=== PATIENT | male | born 1950 | race Caucasian/White ===

== ENCOUNTER → 2017-01-24 | Outpatient (CLI) | payer OTHER ==
[~2017-01-24] MED LIST: ALBUAER19 INH; ASC400 PO; ASPEC81 PO; CETICHW4 PO; CLB200 PO; CRS10 PO; GLC500 PO; GLIM1TAB2 PO; HYDR-4313 PO; LANS15CA6 PO; LANS30CA12 PO; ORPH100T PO; OXYC-609 PO; SERT-234 PO; XNX25 PO
[2017-01-24 13:15] LABS: BASO % 0.5 %; BASO ABS # 0.04 K/uL (0-0.2); COMPLETE YES; EOS % 2.7 %; IG% 0.4 %; LYMPH % 20.6 %; LYMPH ABS # 1.73 K/uL (1.2-3.4); MEAN CELL VOLUME 87.2 fL (80-100); MEAN CORPUSCULAR HEMOGLOBIN 30.4 pg (25-34); MEAN CORPUSCULAR HGB CONC 34.9 g/dl (32-36); MEAN PLATELET VOLUME 10.4 fL (7.4-10.4); MONO % 8.5 %; NEUT % 67.3 %; PLATELET COUNT 160 K/uL (130-400); RED BLOOD COUNT 5.16 M/uL (4.7-6.1); WHITE BLOOD COUNT 8.39 K/uL (4.8-10.8)
[2017-01-24 13:33] LABS: ALT/SGPT 54 U/L (12-78); BLOOD UREA NITROGEN 18 mg/dl (7-18); BUN/CREATININE RATIO 17.7 (10-20); CARBON DIOXIDE 25 mmol/L (21-32); CHLORIDE 105 mmol/L (98-107); CREATININE 0.99 mg/dl (0.60-1.40); GLUCOSE 155 mg/dl (70-99); POTASSIUM 4.2 mmol/L (3.5-5.1); SODIUM 140 mmol/L (136-145)
[2017-01-24 13:36] LABS: ALB/GLOB RATIO 1.3 (0.9-2); ALKALINE PHOSPHATASE 93 U/L (45-117); AST/SGOT 23 U/L (15-37); CHOLESTEROL 126 mg/dl (0-200); TRIGLYCERIDES 81 mg/dl (0-150); VERY LOW DENSITY LIPOPROT CALC 16 mg/dl
[2017-01-24 13:38] LABS: CALCIUM 9.5 mg/dl (8.5-10.1)
[2017-01-24 13:39] LABS: CHOLESTEROL/HDL RATIO 2.3; ESTIMATED AVERAGE GLUCOSE 169 mg/dl; HA1C FLAG Normal (Normal); HDL CHOLESTEROL 54 mg/dl; LDL CHOLESTEROL CALCULATED 56 mg/dl
[2017-01-24 13:48] LABS: RATIO 16.2 mcg/mg (0-30.0)
--- NOTE | 2017-01-29 09:32 | CODING QUERY MEDICAL NECESSITY ---
SUPPORTING DIAGNOSIS NEEDED A supporting diagnosis is required for the test/procedure performed on this patient in order for us to be reimbursed by the patient's insurance. Please provide a supporting diagnosis for the following test/procedure listed below next to the test name along with your signature. *If there is no additional diagnosis for this patient that would support the following test/procedure please document that below next to the test/procedure. Test(s)/Procedure(s) that require a supporting diagnosis: DOS 01/24 * PSA DIAGNOSIS: Provider Signature: Date: Thank you Mikayla Vargas Health Information Management Once completed, please kindly fax back to [phone] For questions please call [phone]
== END | disposition home or self-care (01) ==
LOC: C.LABMFLN 08:18
PROVIDERS: ATTEND Family Medicine
DX: E11.9 Type 2 diabetes mellitus without complications (principal); E78.00 Pure hypercholesterolemia, unspecified; K50.90 Crohn's disease, unspecified, without complications; Z12.5 Encounter for screening for malignant neoplasm of prostate

== ENCOUNTER → 2017-07-24 | Outpatient (CLI) | payer OTHER ==
[~2017-07-24] VITALS: Ht 167.6 cm; Wt 68.3 kg
[2017-07-24 16:13] VITALS: BP 121/78; PULSE 79; Ht 167.6 cm; Wt 68.3 kg
== END | disposition home or self-care (01) ==
LOC: C.NEUR 15:25
PROVIDERS: ATTEND Internal Medicine Pulmonary Disease
DX: G47.33 Obstructive sleep apnea (adult) (pediatric) (principal)

== ENCOUNTER → 2017-11-05 | Outpatient (CLI) | payer OTHER ==
[~2017-11-05] MED LIST changes: +OXYC-57 PO
[2017-11-05 13:19] LABS: HEMOGLOBIN A1C 6.9 % (4.5-5.6)
[2017-11-05 15:25] LABS: ALT/SGPT 58 U/L (12-78); AST/SGOT 36 U/L (15-37); BLOOD UREA NITROGEN 22 mg/dl (7-18); CARBON DIOXIDE 27 mmol/L (21-32); CREATININE 1.01 mg/dl (0.60-1.40); GLUCOSE 121 mg/dl (70-99); POTASSIUM 4.2 mmol/L (3.5-5.1); SODIUM 138 mmol/L (136-145)
[2017-11-05 15:28] LABS: ALKALINE PHOSPHATASE 108 U/L (45-117); CHOLESTEROL 95 mg/dl (0-200); LDL CHOLESTEROL CALCULATED 38 mg/dl; TOTAL PROTEIN 7.7 gm/dl (6.4-8.2)
== END | disposition home or self-care (01) ==
LOC: C.LABMFLN 10:12
PROVIDERS: ATTEND Family Medicine
DX: E11.9 Type 2 diabetes mellitus without complications (principal); E78.00 Pure hypercholesterolemia, unspecified

== ENCOUNTER → 2018-03-13 | Outpatient (CLI) | payer OTHER ==
[~2018-03-13] MED LIST changes: -OXYC-57 PO
[2018-03-13 12:45] LABS: HEMOGLOBIN A1C 7.4 % (4.5-5.6)
[2018-03-13 13:08] LABS: ALT/SGPT 42 U/L (12-78); AST/SGOT 24 U/L (15-37); BLOOD UREA NITROGEN 21 mg/dl (7-18); CALCIUM 8.4 mg/dl (8.5-10.1); CARBON DIOXIDE 29 mmol/L (21-32); CHOLESTEROL 104 mg/dl (0-200); CREATININE 0.93 mg/dl (0.60-1.40); GLUCOSE 121 mg/dl (70-99); POTASSIUM 3.9 mmol/L (3.5-5.1); SODIUM 141 mmol/L (136-145)
[2018-03-13 13:13] LABS: ALKALINE PHOSPHATASE 87 U/L (45-117); LDL CHOLESTEROL CALCULATED 40 mg/dl; TOTAL PROTEIN 7.2 gm/dl (6.4-8.2)
== END | disposition home or self-care (01) ==
LOC: C.LABMFLN 09:13
PROVIDERS: ATTEND Family Medicine
DX: E11.9 Type 2 diabetes mellitus without complications (principal); E78.00 Pure hypercholesterolemia, unspecified

== ENCOUNTER 2018-06-02 05:58 | Emergency (ER) | payer OTHER ==
[~2018-06-02] VITALS: Ht 167.6 cm; Wt 68.4 kg
[2018-06-02 06:03] VITALS: TEMP 36.7; Ht 167.6 cm; Wt 68.4 kg
[2018-06-02 06:20] VITALS: O2SAT 98
--- NOTE | 2018-06-02 06:31 | DIAGNOSTIC IMAGING REPORT ---
CHEST ONE VIEW PORTABLE CLINICAL HISTORY: Chest pain radiating to the epigastrium COMPARISON STUDY: 11/29/2013 FINDINGS: The cardiac and mediastinal contours are normal. There is no evidence of focal pulmonary consolidation. There is no evidence of failure. No pleural effusions are visualized.[ No free intraperitoneal air is visualized. IMPRESSION: No active disease in the chest. Electronically signed by: Anton Smith M.D. 06/02/2018 6:29 AM Dictated Date/Time: 06/02/2018 6:29 AM
[2018-06-02 06:35] LABS: HEMOGLOBIN 15.6 g/dL (14.0-18.0); MEAN CELL VOLUME 91.6 fL (80-100); MEAN CORPUSCULAR HEMOGLOBIN 31.1 pg (25-34); MEAN CORPUSCULAR HGB CONC 33.9 g/dl (32-36); MEAN PLATELET VOLUME 10.2 fL (7.4-10.4); PLATELET COUNT 105 K/uL (130-400); RED CELL DISTRIBUTION WIDTH CV 13.8 % (11.5-14.5); RED CELL DISTRIBUTION WIDTH SD 45.5 fL (36.4-46.3); WHITE BLOOD COUNT 4.92 K/uL (4.8-10.8)
[2018-06-02] MEDS ORDERED: OXYC-57 PO (06:56)
[2018-06-02 06:57] LABS: ALBUMIN 3.8 gm/dl (3.4-5.0); ALKALINE PHOSPHATASE 98 U/L (45-117); ALT/SGPT 54 U/L (12-78); AST/SGOT 37 U/L (15-37); BLOOD UREA NITROGEN 25 mg/dl (7-18); CALCIUM 8.8 mg/dl (8.5-10.1); CARBON DIOXIDE 25 mmol/L (21-32); CKMB < 1.0 ng/ml (0.5-3.6); CREATININE 1.12 mg/dl (0.60-1.40); GLUCOSE 123 mg/dl (70-99); SODIUM 139 mmol/L (136-145); TOTAL PROTEIN 7.1 gm/dl (6.4-8.2)
--- NOTE | 2018-06-02 06:57 | EMERGENCY ROOM VISIT NOTE ---
History Report prepared by Otilia: Manoj Marcus Under the Supervision of: Dr. Tito Mccloud D.O. First contact with patient: 06:33 Chief Complaint: HIP PAIN Stated Complaint: HIP PAIN,HEART BURN History of Present Illness The patient is a 67 year old male who presents to the Emergency Room with complaints of right hip pain that has been progressively worsening for the past "couple of days." The patient notes that he may have bursitis in his hip, as he has had it in many other joints around his body. He notes that he has had several orthopedic procedures including knee replacements and injections into his wrists. He visited with Dr. Freitas's office 10 days ago to have films taken of his back. He thought his back may be causing the hip pain. The back x-rays were unremarkable. The patient also complains of "heart burn" recently and notes an increased amount of stress to to the loss of a loved one. Source of History: patient Onset: "couple of days" Position: leg (Right hip) Quality: burning (heart burn) Timing: worsening (progressively) Associated Symptoms: + chest pain (heart burn) Review of Systems See HPI for pertinent positives & negatives. A total of 10 systems reviewed and were otherwise negative. Past Medical & Surgical Medical Problems: (1) Diabetes Diabetes Hx of knee replacements, Bursitis. Family History Diabetes mellitus Social History Smoking Status: Never Smoker Drug Use: none Occupation Status: employed (self-employed) Current/Historical Medications Scheduled Alprazolam (Xanax *), 0.25 MG PO BID PRN Aspirin Enteric Coated (Ecotrin Or Generic *), 81 MG PO DAILY Celecoxib (Celebrex *), 200 MG PO DAILY Cetirizine (Zyrtec), 5 MG PO DAILY Glimepiride (Glimepiride), 1 TAB PO QPM Lansoprazole (Prevacid), 30 MG PO QAM Lansoprazole (Prevacid), 15 MG PO QPM Mesalamine (Asacol *), 800 MG PO BID Metformin HCL (Glucophage *), 1,000 MG PO QPM Metformin HCL (Glucophage *), 1,500 MG PO QAM Rosuvastatin Calcium (Crestor *), 15 MG PO QPM Sertraline (Zoloft), 150 MG PO DAILY Scheduled PRN Acetaminophen/Hydrocodone (Hydrocodone/Acetaminophen 5-325 mg), 1 TAB PO Q4H PRN for Pain Albuterol Inhaler (Ventolin Inhaler), 2 PUFFS INH Q4H PRN for Wheezing Orphenadrine Citrate (Norflex), 100 MG PO BID PRN for Mild Pain Oxycodone HCl (Oxycodone HCl), 5-10 MG PO Q4H PRN for Pain Oxycodone/Acetaminophen 5MG/325MG (Percocet 5MG/325MG), 1 TAB PO Q6H PRN for Pain Allergies Coded Allergies: Cephalosporins (Verified Allergy, Intermediate, HIVES, 12/08/13) Penicillins (Verified Allergy, Intermediate, HIVES, 12/08/13) Sitagliptin (Verified Allergy, Intermediate, HIVES, 12/08/13) Physical Exam Vital Signs Date Time Temp Pulse Resp B/P (MAP) Pulse Ox O2 Delivery O2 Flow Rate FiO2 06/02/18 07:26 81 16 142/78 97 06/02/18 06:21 70 06/02/18 06:20 98 Room Air 06/02/18 06:20 98 Room Air 06/02/18 06:03 36.7 70 18 153/81 96 Room Air Physical Exam CONSTITUTIONAL/VITAL SIGNS: Reviewed / noted above. GENERAL: Non-toxic in appearance. INTEGUMENTARY: Warm, dry, and [place]. HEAD: Normocephalic. EYES: without scleral icterus or trauma. ENT/OROPHARYNX: clear and moist. LYMPHADENOPATHY/NECK: Is supple without lymphadenopathy or meningismus. RESPIRATORY: Lungs clear and equal. CARDIOVASCULAR: Regular rate and rhythm. GI/ABDOMEN: Soft and nontender. No organomegaly or pulsatile mass. No rebound or guarding. Normal bowel sounds. EXTREMITIES: Warm and well perfused. BACK: No CVA tenderness. NEUROLOGICAL: Intact without focal deficits. PSYCHIATRIC: normal affect. MUSCULOSKELETAL: Normally developed with good muscle tone. There is tenderness to palpation over the right gluteus muscle. Medical Decision & Procedures ER Provider Diagnostic Interpretation: Radiology results as stated below per my review and radiologist interpretation: CHEST ONE VIEW PORTABLE CLINICAL HISTORY: Chest pain radiating to the epigastrium COMPARISON STUDY: 11/29/2013 FINDINGS: The cardiac and mediastinal contours are normal. There is no evidence of focal pulmonary consolidation. There is no evidence of failure. No pleural effusions are visualized.[ No free intraperitoneal air is visualized. IMPRESSION: No active disease in the chest. Electronically signed by: Anton Smith M.D. 06/02/2018 6:29 AM Dictated Date/Time: 06/02/2018 6:29 AM Laboratory Results 06/02/18 06:20 06/02/18 06:20 Test 06/02/18 06:20 06/02/18 06:25 Red Blood Count 5.02 M/uL (4.7-6.1) Mean Corpuscular Volume 91.6 fL (80-100) Mean Corpuscular Hemoglobin 31.1 pg (25-34) Mean Corpuscular Hemoglobin Concent 33.9 g/dl (32-36) RDW Standard Deviation 45.5 fL (36.4-46.3) RDW Coefficient of Variation 13.8 % (11.5-14.5) Mean Platelet Volume 10.2 fL (7.4-10.4) Prothrombin Time 10.5 SECONDS (9.0-12.0) Prothromb Time International Ratio 1.0 (0.9-1.1) Activated Partial Thromboplast Time 27.0 SECONDS (21.0-31.0) Partial Thromboplastin Ratio 1.0 Anion Gap 8.0 mmol/L (3-11) Est Creatinine Clear Calc Drug Dose 58.5 ml/min Estimated GFR () 78.9 Estimated GFR (Non- 68.1 BUN/Creatinine Ratio 22.3 (10-20) Calcium Level 8.8 mg/dl (8.5-10.1) Total Bilirubin 0.3 mg/dl (0.2-1) Aspartate Amino Transf (AST/SGOT) 37 U/L (15-37) Alanine Aminotransferase (ALT/SGPT) 54 U/L (12-78) Alkaline Phosphatase 98 U/L (45-117) Total Creatine Kinase 34 U/L (39-308) Creatine Kinase MB < 1.0 ng/ml (0.5-3.6) Creatine Kinase MB Ratio (0-3.0) Total Protein 7.1 gm/dl (6.4-8.2) Albumin 3.8 gm/dl (3.4-5.0) Globulin 3.3 gm/dl (2.5-4.0) Albumin/Globulin Ratio 1.2 (0.9-2) Bedside Troponin I < 0.030 ng/ml (0-0.045) Laboratory results as stated above per my review. ECG Per My Interpretation Indication: chest pain (Heart burn) Rate (beats per minute): 66 Rhythm: normal sinus Findings: no acute ischemic change, no ectopy, other (No ESTEPHANIA/STD, no PVCs) ED Course 0637: I did a PDMP search on the patient at this time. He does have frequent Alprazolam prescriptions, no issues identified. 0639: Previous medical records were reviewed. The patient was evaluated in room B3B. A complete history and physical examination was performed. Medical Decision Differential diagnosis: Etiologies such as fracture, dislocation, neurovascular compromise, compartment syndrome, soft tissue injury, as well as others were entertained. This is a 67-year-old male who presents to the ED with a chief complaint of pain in the right buttock area. He also reports some discomfort in his chest that he feels is related to taking too much pain medication. The patient states that he has had the discomfort for about 1 or 2 weeks. He describes a burning sensation in his chest. The patient does report he is taking Prilosec. He states that he saw Dr. Freitas's physician assistant fitness manager 10 days ago and they did not feel it was related to the back. The patient does have follow-up with the GI specialist on Friday, in 3 days as well. The patient states that his pain in his right buttock area has been slowly worsening. He has been doing a lot of work and has been under increased stress recently related to cleaning out his [id number]'s house getting ready for an auction. The patient's has no other complaints. His blood pressure was slightly elevated. On his exam he has tenderness to palpation of the right buttock area. This is specifically where his pain is. He denies any radiation down his legs. He denies any pain with flexion, extension or rotation of the right hip. Distally is neurovascularly intact. His exam is otherwise unremarkable. An EKG shows a sinus rhythm without ischemic changes. His troponin was negative. Blood work is unremarkable. Chest x-ray was clear. The patient was told the results. He is felt to be stable for discharge. Prescription for Percocet was provided for his discomfort. He was advised to follow-up with Dr. Castano, his orthopedist with regards to his pain is right hip/buttock area. He, again, has a GI appointment in 3 days. [place] Drug Monitoring Program Search Results: patient reviewed within database, no issues identified Drug Monitoring Findings: frequent Alprazolam prescriptions. No narcotics. Medication Reconcilliation Current Medication List: was personally reviewed by me Blood Pressure Screening Patient's blood pressure: Elevated blood pressure Blood pressure disposition: Elevated BP felt to be situational Impression Primary Impression: Right buttock pain Additional Impression: Acid reflux Scribe Attestation The scribe's documentation has been prepared under my direction and personally reviewed by me in its entirety. I confirm that the note above accurately reflects all work, treatment, procedures, and medical decision making performed by me. Departure Information Dispostion Home / Self-Care Prescriptions Oxycodone/Acetaminophen 5MG/325MG (PERCOCET 5MG/325MG) Tab 1 TAB PO Q6H Y for Pain, #20 TAB Prov: Tito Mccloud D.O. 06/02/18 Referrals Toney Rene M.D. (PCP) Patient Instructions My [facility] Additional Instructions Follow-up with your GI specialist this Friday as schedule. Follow-up with Dr. Castano for continued discomfort in the right buttock/hip area. Percocet as prescribed. No driving within 6 hours of use. Do not take additional Tylenol while taking Percocet. Your chest x-ray, EKG and blood work today was normal. Problem Qualifiers
[2018-06-02 07:26] VITALS: BP 142/78; PULSE 81; O2SAT 97
== END 2018-06-02 07:20 | disposition home or self-care (01) ==
LOC: C.EDB 05:59
DX: R52 Pain, unspecified (principal); K21.9 Gastro-esophageal reflux disease without esophagitis; E11.9 Type 2 diabetes mellitus without complications; Z96.653 Presence of artificial knee joint, bilateral; Z79.84 Long term (current) use of oral hypoglycemic drugs; Z79.899 Other long term (current) drug therapy; Z88.1 Allergy status to other antibiotic agents; Z88.0 Allergy status to penicillin; Z88.8 Allergy status to other drugs, medicaments and biological substances